=== PATIENT | female | born 1985 | race Caucasian/White ===

== ENCOUNTER 2020-12-19 21:02 | Emergency (ER) | payer MEDICAID, OTHER ==
[~2020-12-19] VITALS: Ht 157.5 cm; Wt 70.3 kg
[2020-12-19 21:06] VITALS: BP 125/60
[2020-12-19] MEDS ORDERED: NACL 0.9% 1,000 ML IV ONE (21:30)
[2020-12-19] MEDS ORDERED: METOCLOPRAMIDE 10 MG/2 ML INJ VIAL IVP ONE (21:30)
[2020-12-19] MEDS ORDERED: diphenhydrAMINE 50 MG/ML VIAL IVP ONE (21:30)
[2020-12-19] MEDS ORDERED: SUMA20SP NS (22:47)
[2020-12-19] MEDS ORDERED: IBUP-2213 PO (22:47)
[2020-12-19] MEDS ORDERED: ONDA4TAB PO (22:47)
[2020-12-19 23:00] VITALS: BP 108/68
== END 2020-12-19 23:00 | disposition home or self-care (01) ==
LOC: MED 21:02
DX: R51.9 Headache, unspecified (principal); E86.0 Dehydration; R05 Cough; R11.2 Nausea with vomiting, unspecified; Z79.899 Other long term (current) drug therapy
CPT/HCPCS: 71045; 81025; 96361; 96374; 96375; 99284; J1200; J2765; J7030

== ENCOUNTER 2022-01-26 19:39 | Emergency (ER) | payer OTHER ==
[~2022-01-26] VITALS: Ht 157.5 cm; Wt 77.1 kg
[~2022-01-26 19:39] MED LIST: IBUP-2213 PO; ONDA4TAB PO; SUMA20SP NS
[2022-01-26 19:59] VITALS: BP 123/60
--- NOTE | 2022-01-26 20:08 | NUR ---
TO ROOM FOLLOWING TRIAGE
--- NOTE | 2022-01-26 20:14 | NUR ---
MD LOPEZ AT BEDSIDE
--- NOTE | 2022-01-26 20:15 | NUR ---
36/F BIB SELF C/O VAGINAL BLEEDING, "SPOTTING". PATIENT STATED " IM HAVING SEVERE CRAMPING AND HAD LIGHT PINK SPOTTING ON MY PANTY LINER". PATIENT STATED THAT SHE HAS HAD A MISSCARRIAGE IN THE PAST BUT IT DIDNT FEEL LIKE THAT. PATIENT PAIN IS 7/10 AND FEELS LIKE CRAMPING AND PRESSURE. AAOX4, AMBULATORY. RR EVEN AND UNLABORES. NO SIGNS OR RR DISTRESS. DENIES SOB/CP/N/V/D/C AT THIS TIME. PATIENT CALM AND COOPERATIVE, PLACED IN GOWN. BED LOW AND LOCKED. ALL NEEDS MET AT THIS TIME. LMP 12/11/21 PMHX ASTHMA, PREMENSTRUAL MIGRAINES MEDS DENIES NKA
--- NOTE | 2022-01-26 20:15 | NUR ---
PATIENT AMBULATED TO THE AND BACK TO BED 6
--- NOTE | 2022-01-26 20:23 | NUR ---
URINE COLLECTED AND HANDED TO LAB
--- NOTE | 2022-01-26 20:23 | NUR ---
LAB AT BEDSIDE
[2022-01-26 20:29] LABS: APPEARANCE,URINE CLEAR (CLEAR); BILIRUBIN,URINE NEGATIVE (NEGATIVE); BLOOD, URINE NEGATIVE (NEGATIVE); COLOR,URINE YELLOW (YELLOW); LEUKOCYTE ESTERASE ,URINE NEGATIVE (NEGATIVE); NITRITE, URINE NEGATIVE (NEGATIVE); UGLUCOSE NEGATIVE (NEGATIVE)
[2022-01-26 20:30] LABS: BASOPHILS # (AUTO) 0.1 K/uL (0.00-0.22); BASOPHILS % (AUTO) 0.6 % (0.0-2.0); EOSINOPHILS # (AUTO) 0.1 K/uL (0-0.4); EOSINOPHILS % (AUTO) 1.7 % (0.0-4.0); HEMATOCRIT 41.1 % (36-48); HEMOGLOBIN 13.8 g/dL (12.0-16.0); LYMPHOCYTES % (AUTO) 35.9 % (20.5-51.1); MEAN CORPUSCULAR HEMOGLOBIN 31 pg (27-31); MEAN CORPUSCULAR HGB CONC 34 g/dL (33-37); MEAN CORPUSCULAR VOLUME 92.4 fL (80-94); MONOCYTES # (AUTO) 0.7 K/uL (0.8-1.0); MONOCYTES % (AUTO) 7.9 % (1.7-9.3); NEUTROPHILS # (AUTO) 4.5 K/uL (1.8-7.7); NEUTROPHILS % (AUTO) 53.9 % (42.2-75.2); PLATELET COUNT (AUTO) 236 K/uL (140-450); RED BLOOD CELL COUNT(AUTO) 4.45 MIL/uL (4.20-5.40); RED CELL DISTRIBUTION WIDTH 13.7 % (11.6-13.7); WHITE BLOOD COUNT (AUTO) 8.3 K/uL (4.8-10.8)
--- NOTE | 2022-01-26 20:35 | NUR ---
US AT BEDSIDE
[2022-01-26] MEDS ORDERED: ACETAMINOPHEN EXTRA STRENGTH 500 MG TAB PO ONE (20:45)
--- NOTE | 2022-01-26 22:00 | NUR ---
MD LOPEZ AT BEDSIDE ASSESSING PATIENT
[2022-01-26] MEDS ORDERED: PREN-500 PO (22:33)
[2022-01-26 22:41] VITALS: BP 126/70
--- NOTE | 2022-01-26 22:41 | NUR ---
Patient discharged with v/s stable. Written and verbal after care instructions given on vaginal bleeding and explained. Patient alert, oriented and verbalized understanding of instructions. Ambulatory with steady gait. All questions addressed prior to discharge. ID band removed. Patient advised to follow up with PMD. Rx of Vitamin plus Low Iron given.
== END 2022-01-26 22:40 | disposition home or self-care (01) ==
LOC: MED 19:39
DX: O20.0 Threatened abortion (principal); Z3A.01 Less than 8 weeks gestation of pregnancy; Z79.899 Other long term (current) drug therapy; Z98.890 Other specified postprocedural states
CPT/HCPCS: 36415; 76817; 81003; 84702; 85025; 85610; 85730; 99284; Q0092

== ENCOUNTER 2022-03-26 10:15 | Emergency (ER) | payer OTHER ==
[~2022-03-26] VITALS: Ht 160 cm; Wt 75.0 kg
[~2022-03-26 10:15] MED LIST changes: +PREN-500 PO
[2022-03-26 10:20] VITALS: BP 124/77
[2022-03-26] MEDS ORDERED: NACL 0.9% 1,000 ML IV ONE (10:20)
[2022-03-26] MEDS ORDERED: ONDANSETRON 4 MG/2 ML VIAL IVP ONE (10:20)
--- NOTE | 2022-03-26 10:27 | NUR ---
PT AMB TO BED 6.
--- NOTE | 2022-03-26 10:47 | NUR ---
36YO FEMALE PT C/O VAGINAL BLEEDING AND N/V XLAST NIGHT. PT CURRENTLY 14WEEKS , G3T1L1. PT NAUSEOUS AND REPORTS X1 VOMIT PRIOR TO ARRIVAL, DENIES BLOOD IN VOMIT. PT NOTES INCONSISTENT MILD VAGINAL BLEEDING AND HAS INCREASED CRAMPING 8/10 PELVIC PAIN XLASTNIGHT . PT PRESENTS WITH MILD BLOATING, ABDOMEN NON TENDER OR DISTENDED . DENIES DIARRHEA, DYSURIA OR CHEST PAIN. PT AAOX4, NO VISIBLE DISTRESS. RESPIRATIONS EVEN AND UNLABORED. NKA NHX
--- NOTE | 2022-03-26 10:49 | NUR ---
ULTRASOUND AT BEDSIDE
[2022-03-26 10:59] LABS: APPEARANCE,URINE SL CLOUDY (CLEAR); BILIRUBIN,URINE NEGATIVE (NEGATIVE); BLOOD, URINE NEGATIVE (NEGATIVE); COLOR,URINE YELLOW (YELLOW); LEUKOCYTE ESTERASE ,URINE NEGATIVE (NEGATIVE); NITRITE, URINE NEGATIVE (NEGATIVE); UGLUCOSE NEGATIVE (NEGATIVE)
[2022-03-26 11:15] LABS: ALBUMIN 3.4 g/dL (3.4-5.0); ANION GAP 16.2 (8-16); CARBON DIOXIDE 20.3 mmol/L (21-32); CREATININE 0.6 mg/dL (0.6-1.3); POTASSIUM 3.5 mmol/L (3.5-5.1); TOTAL BILIRUBIN 0.4 mg/dL (0.0-1.0)
[2022-03-26 11:41] LABS: BASOPHILS % (AUTO) 0.1 % (0.0-2.0); EOSINOPHILS % (AUTO) 0.6 % (0.0-4.0); HEMATOCRIT 39.7 % (36-48); HEMOGLOBIN 13.5 g/dL (12.0-16.0); LYMPHOCYTES # (AUTO) 0.9 K/uL (2.5-16.5); LYMPHOCYTES % (AUTO) 15.3 % (20.5-51.1); MEAN CORPUSCULAR HEMOGLOBIN 32 pg (27-31); MEAN CORPUSCULAR HGB CONC 34 g/dL (33-37); MEAN CORPUSCULAR VOLUME 92.4 fL (80-94); MONOCYTES # (AUTO) 0.3 K/uL (0.8-1.0); MONOCYTES % (AUTO) 5.2 % (1.7-9.3); NEUTROPHILS # (AUTO) 4.7 K/uL (1.8-7.7); NEUTROPHILS % (AUTO) 78.8 % (42.2-75.2); PLATELET COUNT (AUTO) 175 K/uL (140-450); WHITE BLOOD COUNT (AUTO) 5.9 K/uL (4.8-10.8)
[2022-03-26] MEDS ORDERED: ACET-10509 PO (12:07)
[2022-03-26] MEDS ORDERED: ONDA-188 SL (12:07)
--- NOTE | 2022-03-26 12:10 | NUR ---
Patient discharged with v/s stable. Written and verbal after care instructions FOR VAGBAL BLEEDING DURING PREGNANY, 1ST TRIMESTER given and explained. Patient alert, oriented and verbalized understanding of instructions. Ambulatory with steady gait. All questions addressed prior to discharge. ID band removed. Patient advised to follow up with PMD. Rx of TYLENOL EXTRA XTRA STRENGTH TAB AND ZOFRAN given. Opportunity to ask questions provided and answered. PT D/C BY TEX GARNETT
--- NOTE | 2022-03-26 12:11 | NUR ---
Chart checked and completed. The patient's care was reviewed and supervised by Nevin Silverman RN.
[2022-03-26 12:23] VITALS: BP 122/72
== END 2022-03-26 12:23 | disposition home or self-care (01) ==
LOC: MED 10:15
DX: O46.92 Antepartum hemorrhage, unspecified, second trimester (principal); Z3A.14 14 weeks gestation of pregnancy; Z79.899 Other long term (current) drug therapy
CPT/HCPCS: 36415; 76801; 80053; 81003; 81025; 84702; 85025; 86900; 86901; 96361; 96374; 99284; J2405; J7030; Q0092

== ENCOUNTER 2024-02-16 02:39 | Emergency (ER) | payer OTHER ==
[~2024-02-16] VITALS: Ht 157.5 cm; Wt 79.4 kg
[~2024-02-16 02:39] MED LIST changes: +ACET-10509 PO; +ONDA-188 SL
[2024-02-16 03:12] VITALS: BP 133/67; PULSE 62; RESP 16; TEMP 97.2; O2SAT 98
[2024-02-16] MEDS: EPINEPHrine 1 MG/ML AMP SUBQ ONE (04:15)
[2024-02-16] MEDS: diphenhydrAMINE 50 MG/ML VIAL IVP ONE (04:16)
[2024-02-16] MEDS: NACL 0.9% 1,000 ML IV ONE (04:17)
[2024-02-16] MEDS: methylPREDNISolone SS 125 MG in WATER STERILE 2 ML IV ONE (04:19)
[2024-02-16] MEDS ORDERED: methylPREDNISolone SS 125 MG/2 ML VIAL ONE (04:19)
[2024-02-16] MEDS ORDERED: METH4TAB1 PO (06:05)
[2024-02-16] MEDS ORDERED: CROM26SP NS (06:05)
[2024-02-16] MEDS ORDERED: MONT-72 PO (06:05)
[2024-02-16 06:08] VITALS: BP 128/82; PULSE 82; RESP 16; TEMP 97.6; O2SAT 98
== END 2024-02-16 03:41 | disposition home or self-care (01) ==
LOC: MED 02:39
DX: L50.9 Urticaria, unspecified (principal); Z79.899 Other long term (current) drug therapy
CPT/HCPCS: 96361; 96372; 96374; 96375; 99285; J0171; J1200; J2930; J2919; J7030

== ENCOUNTER 2024-06-11 06:41 | Inpatient (IN) | payer OTHER ==
[~2024-06-11] VITALS: Ht 157.5 cm; Wt 80.4 kg
[~2024-06-11 06:41] MED LIST changes: -ACET-10509 PO; +ACET500T99 PO; +CROM26SP NS; +METH4TAB1 PO; +MONT-72 PO
[2024-06-11 07:03] VITALS: BP 125/80; PULSE 92; RESP 20; TEMP 97.6; O2SAT 98
[2024-06-11] MEDS: FAMOTIDINE 20 MG/2 ML VIAL IVP ONE (07:57)
[2024-06-11] MEDS: ONDANSETRON 4 MG/2 ML VIAL IVP ONE (07:57)
[2024-06-11] MEDS: KETOROLAC 30 MG/ML VIAL IVP ONE (07:58)
[2024-06-11 08:04] LABS: BASOPHILS % (AUTO) 0.2 % (0.0-2.0); EOSINOPHILS % (AUTO) 0.3 % (0.0-4.0); HEMATOCRIT 42.6 % (36-48); HEMOGLOBIN 14.6 g/dL (12.0-16.0); LYMPHOCYTES # (AUTO) 1.5 K/uL (2.5-16.5); LYMPHOCYTES % (AUTO) 11.3 % (20.5-51.1); MEAN CORPUSCULAR HEMOGLOBIN 31 pg (27-31); MEAN CORPUSCULAR HGB CONC 34 g/dL (33-37); MEAN CORPUSCULAR VOLUME 91.1 fL (80-94); MONOCYTES % (AUTO) 7.5 % (1.7-9.3); NEUTROPHILS # (AUTO) 10.9 K/uL (1.8-7.7); NEUTROPHILS % (AUTO) 80.7 % (42.2-75.2); PLATELET COUNT (AUTO) 211 K/uL (140-450); RED BLOOD CELL COUNT(AUTO) 4.68 MIL/uL (4.20-5.40); RED CELL DISTRIBUTION WIDTH 13.1 % (11.6-13.7); WHITE BLOOD COUNT (AUTO) 13.5 K/uL (4.8-10.8)
[2024-06-11] MEDS: NACL 0.9% 1,000 ML IV SCH ×2 (08:05→13:20)
[2024-06-11 08:17] LABS: APPEARANCE,URINE CLEAR (CLEAR); BILIRUBIN,URINE NEGATIVE (NEGATIVE); BLOOD, URINE NEGATIVE (NEGATIVE); COLOR,URINE YELLOW (YELLOW); LEUKOCYTE ESTERASE ,URINE NEGATIVE (NEGATIVE); NITRITE, URINE NEGATIVE (NEGATIVE); PROTEIN,URINE NEGATIVE (NEGATIVE); UGLUCOSE TRACE (NEGATIVE); UROBILINOGEN,URINE 0.2 EU/dL (0.2 - 1)
[2024-06-11 08:31] LABS: ANION GAP 10.9 (8-16); CALCIUM 9.1 mg/dL (8.5-10.1); CARBON DIOXIDE 25.7 mmol/L (21-32); CREATININE 0.8 mg/dL (0.6-1.3); POTASSIUM 3.6 mmol/L (3.5-5.1)
[2024-06-11] MEDS: fentaNYL citrate 0.05 MG/ML VIAL IVP ONE ×2 (08:41→12:57)
[2024-06-11 08:56] LABS: ALBUMIN 3.6 g/dL (3.4-5.0); BILIRUBIN,DIRECT 0.1 mg/dL (0.0-0.3); TOTAL BILIRUBIN 0.8 mg/dL (0.0-1.0); TOTAL PROTEIN, SERUM 8.2 g/dL (6.4-8.2)
[2024-06-11 12:15] LABS: LACTIC ACID 0.7 mmol/L (0.4-2.0)
[2024-06-11] MEDS ORDERED: SEVOFLURANE 250 ML BTL INH ONE (19:20)
[2024-06-11] MEDS ORDERED: MEPERIDINE 25 MG/ML SYR IVP PRN (20:55)
[2024-06-11] MEDS ORDERED: ONDANSETRON 4 MG/2 ML VIAL IVP PRN (20:55)
[2024-06-11] MEDS: HYDROmorphone 1 MG/ML AMP IVP PRN (21:16)
[2024-06-11] MEDS: HYDROmorphone PFS 2 MG/ML SYR ONE (21:17)
[2024-06-11 22:00] VITALS: BP 111/56; PULSE 61; RESP 16; TEMP 98; O2SAT 98
[2024-06-11] MEDS: PIPERACILLIN/TAZOBACTAM 3.375 GM in DEXTROSE 5% 50 ML IV SCH (22:21)
[2024-06-11] MEDS: MORPHINE SULFATE 2 MG/ML SYR IVP PRN (22:39)
[2024-06-11 23:31] VITALS: PULSE 61; RESP 16; O2SAT 98
[2024-06-12] MEDS: ONDANSETRON 4 MG/2 ML VIAL IVP PRN (00:10)
[2024-06-12 04:09] VITALS: BP 111/63; PULSE 70; RESP 18; TEMP 97.1; O2SAT 95
[2024-06-12] MEDS: PIPERACILLIN/TAZOBACTAM 3.375 GM VIAL IV ONE ×2 (04:12→20:00)
[2024-06-12 05:20] LABS: BASOPHILS % (AUTO) 0.1 % (0.0-2.0); HEMATOCRIT 36.4 % (36-48); HEMOGLOBIN 12.4 g/dL (12.0-16.0); LYMPHOCYTES # (AUTO) 0.9 K/uL (2.5-16.5); LYMPHOCYTES % (AUTO) 8.5 % (20.5-51.1); MEAN CORPUSCULAR HEMOGLOBIN 31 pg (27-31); MEAN CORPUSCULAR HGB CONC 34 g/dL (33-37); MEAN CORPUSCULAR VOLUME 91.1 fL (80-94); MONOCYTES # (AUTO) 0.3 K/uL (0.8-1.0); NEUTROPHILS # (AUTO) 9.6 K/uL (1.8-7.7); NEUTROPHILS % (AUTO) 88.4 % (42.2-75.2); PLATELET COUNT (AUTO) 186 K/uL (140-450); WHITE BLOOD COUNT (AUTO) 10.8 K/uL (4.8-10.8)
[2024-06-12 05:53] LABS: ANION GAP 12.1 (8-16); CALCIUM 8.1 mg/dL (8.5-10.1); CARBON DIOXIDE 23.6 mmol/L (21-32); CREATININE 0.7 mg/dL (0.6-1.3); POTASSIUM 3.7 mmol/L (3.5-5.1)
[2024-06-12 07:55] VITALS: BP 117/65; PULSE 61; PULSE 80; RESP 16; RESP 18; TEMP 97.1; O2SAT 97; O2SAT 98
[2024-06-12 14:00] VITALS: BP 127/65; PULSE 61; RESP 20; TEMP 97.1; O2SAT 97
[2024-06-12] MEDS: SIMETHICONE 80 MG TAB.CHEW PO PRN (16:58)
[2024-06-12 17:30] VITALS: BP 120/77; PULSE 65; RESP 16; TEMP 98; O2SAT 98
[2024-06-12 19:50] VITALS: PULSE 76; RESP 19; O2SAT 100
[2024-06-12 20:00] VITALS: BP 122/73; PULSE 65; PULSE 80; RESP 18; RESP 19; TEMP 98; O2SAT 100
[2024-06-12] MEDS: METOCLOPRAMIDE 10 MG/2 ML INJ VIAL ONE (20:00)
[2024-06-12] MEDS: SUCCINYLCHOLINE CHLORIDE 200 MG/10 ML VIAL IVP ONE (20:00)
[2024-06-12] MEDS: SUGAMMADEX SODIUM 200 MG/2 ML VIAL IV ONE (20:00)
[2024-06-12] MEDS: LIDOCAINE/EPI 1% 1:100000 20 ML VIAL INJ ONE ×2 (20:00)
[2024-06-12] MEDS: ONDANSETRON 4 MG/2 ML VIAL ONE (20:00)
[2024-06-12] MEDS: DEXAMETHASONE 4 MG/ML VIAL ONE (20:00)
[2024-06-12] MEDS: HYDROmorphone PFS 2 MG/ML SYR ONE (20:00)
[2024-06-12] MEDS: NEOSTIGMINE 1:1000 10 MG/10 ML VIAL ONE (20:00)
[2024-06-12] MEDS: PROPOFOL 200 MG/20 ML VIAL IV ONE (20:00)
[2024-06-12] MEDS: BUPIVACAINE-MPF 0.25% 30 ML VIAL INJ ONE ×2 (20:00)
[2024-06-12] MEDS: GLYCOPYRROLATE 0.2 MG/ML VIAL ONE ×2 (20:00)
[2024-06-12] MEDS: ePHEDrine 50 MG/ML VIAL ONE (20:00)
[2024-06-12] MEDS: ROCURONIUM 50 MG/5 ML VIAL IV ONE (20:00)
[2024-06-12] MEDS ORDERED: HYDROmorphone 1 MG/ML AMP IVP PRN (21:45)
[2024-06-13] VITALS (7 sets, daily range): BP systolic 109–129; BP diastolic 60–72; PULSE 67–82; RESP 18; TEMP 96.9–97.7; O2SAT 93–100
[2024-06-13] MEDS: MEDS-TO-BEDS MC SCH (09:00)
[2024-06-13 13:38] LABS: BASOPHILS % (AUTO) 0.5 % (0.0-2.0); EOSINOPHILS % (AUTO) 0.3 % (0.0-4.0); HEMATOCRIT 37.5 % (36-48); HEMOGLOBIN 12.8 g/dL (12.0-16.0); LYMPHOCYTES # (AUTO) 1.3 K/uL (2.5-16.5); LYMPHOCYTES % (AUTO) 19.8 % (20.5-51.1); MEAN CORPUSCULAR HEMOGLOBIN 31 pg (27-31); MEAN CORPUSCULAR HGB CONC 34 g/dL (33-37); MEAN CORPUSCULAR VOLUME 91.2 fL (80-94); MONOCYTES # (AUTO) 0.6 K/uL (0.8-1.0); MONOCYTES % (AUTO) 9.1 % (1.7-9.3); NEUTROPHILS # (AUTO) 4.7 K/uL (1.8-7.7); NEUTROPHILS % (AUTO) 70.3 % (42.2-75.2); PLATELET COUNT (AUTO) 198 K/uL (140-450); RED BLOOD CELL COUNT(AUTO) 4.11 MIL/uL (4.20-5.40); RED CELL DISTRIBUTION WIDTH 12.8 % (11.6-13.7); WHITE BLOOD COUNT (AUTO) 6.7 K/uL (4.8-10.8)
[2024-06-13 13:56] LABS: ALBUMIN 2.8 g/dL (3.4-5.0); ANION GAP 13.9 (8-16); CALCIUM 8.4 mg/dL (8.5-10.1); CARBON DIOXIDE 23.5 mmol/L (21-32); CREATININE 0.8 mg/dL (0.6-1.3); POTASSIUM 3.4 mmol/L (3.5-5.1); TOTAL BILIRUBIN 0.6 mg/dL (0.0-1.0); TOTAL PROTEIN, SERUM 7.1 g/dL (6.4-8.2)
[2024-06-14 04:00] VITALS: BP 119/76; PULSE 60; RESP 18; TEMP 97.2; O2SAT 98
[2024-06-14 05:10] VITALS: PULSE 80; RESP 16; O2SAT 96
[2024-06-14 08:00] VITALS: BP 139/80; PULSE 70; RESP 16; RESP 18; TEMP 97; O2SAT 98
[2024-06-14 08:41] VITALS: O2SAT 97
== END 2024-06-14 15:17 | disposition home or self-care (01) | DRG 234 ==
LOC: MED 06:41 → MMU 13:18
PROVIDERS: ADMIT Hospitalist; ATTEND Hospitalist
PROC: 0DTJ4ZZ Resection of Appendix, Percutaneous Endoscopic Approach (ICD-10-PCS; principal; 2024-06-11 17:00)
DX: K35.80 Unspecified acute appendicitis (principal); R71.0 Precipitous drop in hematocrit; E66.01 Morbid (severe) obesity due to excess calories; Z79.899 Other long term (current) drug therapy; Z68.32 Body mass index [BMI] 32.0-32.9, adult
CPT/HCPCS: 36415; 74018; 80048; 80053; 80076; 81003; 83605; 83690; 83735; 85025; 87040; 87081; 88304; 94010; 96365; 96375; 96376; 99285; J0330; J0694; J1100; J1171; J1885; J2001; J2270; J2405; J2543; J2704; J2710; J2765; J3010; J3490; J7030; J7060; J7120